=== PATIENT | female | born 1930 | race Caucasian/White ===

== ENCOUNTER 2017-03-27 17:56 | Inpatient (IN) ==
[2017-03-27] MEDS ORDERED: SODIUM CHLORIDE 0.9% 500 ML IV STA (18:06)
[2017-03-27] MEDS ORDERED: ACETAMINOPHEN 500 MG TABLET PO STA (18:22)
[2017-03-27] MEDS ORDERED: ACETAMINOPHEN 500 MG TABLET ONE (18:43)
[2017-03-27 18:51] LABS: Basophils % 0.3 % (0.0-0.8); Eosinophils # 0.2 10*3/uL (0.0-0.87); Eosinophils % 2.9 % (0.00-10.9); Hematocrit 31.7 VOL% (35.7-47.0); Hemoglobin 9.8 GM/DL (12.0-16.0); Immature Granulocytes % 0.7 %; Immature Granulocytes Absolute 0.05 #; Lymphocytes # 0.6 10*3/uL (1.4-4.0); Mean Corpuscular HGB Conc 30.9 GM/DL (32-36); Mean Corpuscular Hemoglobin 27 PG (27-34); Mean Corpuscular Volume 87.1 FL (87-102); Mean Platelet Volume 9.1 FL (9.6-12.0); Monocytes # 0.6 10*3/uL (0.11-0.8); Neutrophils # 5.9 10*3/uL (1.4-7.4); Neutrophils % 80.1 % (38.7-73.9); Platelet Count 185 T/CUMM (130-400); Red Blood Count 3.64 MC/CUMM (3.8-5.5); Red Cell Distribution Width 15.8 % (9.3-17.3); White Blood Count 7.3 T/CUMM (4-12)
[2017-03-27 19:06] LABS: Ammonia < 10 UMOL/L (11-32)
[2017-03-27 19:10] LABS: Lactic Acid 0.9 MMOL/L (0.4-2.0)
[2017-03-27 19:11] LABS: PT Patient Result 10.6 SECS
[2017-03-27 19:13] LABS: Alanine Aminotransferase 15 U/L (13-56); Albumin 3.2 G/DL (3.4-5.0); Alkaline Phosphatase 93 U/L (45-117); Aspartate Amino Transferase 12 U/L (0-37); Blood Urea Nitrogen 20 MG/DL (7-18); Calcium 8.7 MG/DL (8.5-10.1); Glucose 95 MG/DL (74-106); Osmolality,Calculated 275.8 MOS/KG (273-304); Potassium 4.3 MMOL/L (3.5-5.1); Sodium 137 MMOL/L (136-145); Troponin I Only < 0.015 NG/ML (0.00-0.045)
[2017-03-27 19:30] LABS: Apearance,Urine Slightly Hazy (Clear); Bacteria,Urine Few /HPF (Few); Bilirubin,Urine Negative (Negative); Blood, Urine Negative (Negative); Glucose,Urine (UA) Negative (Negative); Ketones,Urine Negative (Negative); Mucus,Urine Occasional /LPF (Occasional); Nitrite,Urine Positive (Negative); Protein,Urine 100 MG/DL; RBC,Urine 10 /HPF (0-4); Squamous Epithelial Cell,Urine Occasional /HPF (0-10); Urine Color Yellow (Yellow); Urine Specific Gravity 1.014 (1.001-1.035); Urine Urobilinogen < 2.0 EU/DL (0.2-1.0); WBC,Urine 81 /HPF (0-6)
[2017-03-27] MEDS ORDERED: cefTRIAXone 1,000 MG in SODIUM CHLORIDE 0.9% 100 ML IV STA (19:32)
[2017-03-27] MEDS ORDERED: cefTRIAXone 1,000 MG VIAL ONE (19:56)
[2017-03-27] MEDS ORDERED: ACETAMINOPHEN 325 MG TABLET PO PRN ×2 (21:26)
[2017-03-27] MEDS ORDERED: ENOXAPARIN 30 MG/0.3 ML SYRINGE SUBCUT SCH (21:26)
[2017-03-27 22:36] LABS: Troponin I Only < 0.015 NG/ML (0.00-0.045)
[2017-03-27] MEDS ORDERED: ENOXAPARIN 30 MG/0.3 ML SYRINGE ONE (23:24)
[2017-03-27] MEDS: SODIUM CHLORIDE 0.45% 1,000 ML IV SCH (23:55)
[2017-03-27] MEDS: VERAPAMIL SR 240 MG TABLET PO SCH (23:58)
[2017-03-28 04:28] LABS: Basophils % 0.3 % (0.0-0.8); Eosinophils # 0.2 10*3/uL (0.0-0.87); Eosinophils % 2.9 % (0.00-10.9); Hemoglobin 9.6 GM/DL (12.0-16.0); Immature Granulocytes % 0.6 %; Immature Granulocytes Absolute 0.04 #; Lymphocytes # 0.6 10*3/uL (1.4-4.0); Lymphocytes % 8.7 % (21.3-54.2); Mean Corpuscular Hemoglobin 27 PG (27-34); Mean Corpuscular Volume 85.5 FL (87-102); Mean Platelet Volume 9.2 FL (9.6-12.0); Monocytes # 0.7 10*3/uL (0.11-0.8); Monocytes % 10.4 % (1.7-12.7); Neutrophils # 5.1 10*3/uL (1.4-7.4); Neutrophils % 77.1 % (38.7-73.9); Platelet Count 167 T/CUMM (130-400); Red Blood Count 3.51 MC/CUMM (3.8-5.5); Red Cell Distribution Width 15.9 % (9.3-17.3); White Blood Count 6.7 T/CUMM (4-12)
[2017-03-28 05:02] LABS: Bilirubin,Total 0.6 MG/DL (0.2-1.0); Calcium 8.2 MG/DL (8.5-10.1); Total Protein 6.4 G/DL (6.4-8.3)
[2017-03-28 05:03] LABS: Osmolality,Calculated 278.5 MOS/KG (273-304); Potassium 3.9 MMOL/L (3.5-5.1); Risk Ratio 3.32; Troponin I Only 0.015 NG/ML (0.00-0.045); VLDL CHOLESTEROL 12.2 MG/DL
[2017-03-28] MEDS ORDERED: predniSONE 20 MG TABLET ONE (08:50)
[2017-03-28] MEDS ORDERED: ASPIRIN 325 MG TABLET ONE (08:51)
[2017-03-28] MEDS ORDERED: cefTRIAXone 1,000 MG VIAL ONE (08:51)
[2017-03-28] MEDS: ASPIRIN 325 MG TABLET PO SCH (08:55)
[2017-03-28] MEDS: predniSONE 20 MG TABLET PO SCH (08:55)
[2017-03-28] MEDS: cefTRIAXone 1,000 MG in SYRINGE 1 EACH IV SCH (08:59)
[2017-03-28] MEDS: MULTIVITAMIN (CENTRUM) TABLET PO SCH (10:30)
[2017-03-28] MEDS: SERTRALINE 50 MG TABLET PO SCH (10:30)
[2017-03-28] MEDS ORDERED: LORazepam 2 MG/1 ML VIAL ONE (13:04)
[2017-03-28] MEDS ORDERED: LORazepam 2 MG/1 ML VIAL IV STA (13:07)
[2017-03-28] MEDS ORDERED: clonazePAM 0.5 MG TABLET PO PRN (15:08)
[2017-03-28] MEDS ORDERED: diphenhydrAMINE CAP 25 MG CAPSULE PO PRN (15:08)
[2017-03-28] MEDS: SODIUM CHLORIDE 0.45% 1,000 ML IV SCH (17:33)
[2017-03-28] MEDS: DONEPEZIL 5 MG TABLET PO SCH (17:36)
[2017-03-28] MEDS ORDERED: ENOXAPARIN 40 MG/0.4 ML SYRINGE SUBCUT SCH (21:00)
[2017-03-28] MEDS: VERAPAMIL SR 240 MG TABLET PO SCH (21:07)
[2017-03-29] MEDS: SODIUM CHLORIDE 0.45% 1,000 ML IV SCH (07:02)
[2017-03-29] MEDS: MULTIVITAMIN (CENTRUM) TABLET PO SCH (08:50)
[2017-03-29] MEDS: SERTRALINE 50 MG TABLET PO SCH (08:50)
[2017-03-29] MEDS: DONEPEZIL 5 MG TABLET PO SCH (08:50)
[2017-03-29] MEDS: ASPIRIN 325 MG TABLET PO SCH (08:50)
[2017-03-29] MEDS: predniSONE 20 MG TABLET PO SCH (08:50)
[2017-03-29] MEDS: cefTRIAXone 1,000 MG in SYRINGE 1 EACH IV SCH (08:53)
[2017-03-29 11:17] VITALS: BP 163/70
== END 2017-03-29 11:30 | DRG 884 ==
LOC: EDBD → EDUNIT# → N.ED 17:56 → N.EDINP 20:20 → N.2E 03-28 13:42
PROVIDERS: ADMIT Internal Medicine Geriatric Medicine; ATTEND Internal Medicine Geriatric Medicine

== ENCOUNTER 2020-04-11 10:08 | Inpatient (IN) ==
[2020-04-11] MEDS ORDERED: SODIUM CHLORIDE 0.9% 1,000 ML IV STA (10:44)
[2020-04-11 11:00] LABS: Basophils % 0.3 % (0.0-0.8); Hematocrit 28.4 VOL% (35.7-47.0); Hemoglobin 8.6 GM/DL (12.0-16.0); Immature Granulocytes % 0.6 %; Immature Granulocytes Absolute 0.02 #; Lymphocytes # 0.5 10*3/uL (1.4-4.0); Lymphocytes % 14.8 % (21.3-54.2); Mean Corpuscular HGB Conc 30.3 GM/DL (32-36); Mean Corpuscular Volume 86.6 FL (87-102); Mean Platelet Volume 10.2 FL (9.6-12.0); Monocytes % 8.3 % (1.7-12.7); Platelet Count 169 T/CUMM (130-400); Red Blood Count 3.28 MC/CUMM (3.8-5.5); Red Cell Distribution Width 16.6 % (9.3-17.3); White Blood Count 3.5 T/CUMM (4-12)
[2020-04-11 11:11] LABS: Albumin 2.3 G/DL (3.4-5.0); Bilirubin,Total 0.4 MG/DL (0.2-1.0); Calcium 8.2 MG/DL (8.5-10.1); Osmolality,Calculated 280.4 MOS/KG (273-304); Thyroid Stimulating Hormone 2.38 uIU/ml (0.358-3.74)
[2020-04-11 11:18] LABS: Potassium 5.7 MMOL/L (3.5-5.1)
[2020-04-11 11:26] LABS: Ferritin 374.9 ng/ml (8-252)
[2020-04-11 11:33] LABS: Amorphous Crystals,Urine Few /HPF (Few); Bilirubin,Urine Negative (Negative); Blood, Urine Large mg/dL (Negative); Glucose,Urine (UA) Negative (Negative); Ketones,Urine Negative (Negative); Mucus,Urine Occasional /LPF (Occasional); Nitrite,Urine Positive (Negative); Protein,Urine 30 MG/DL; RBC,Urine 1 /HPF (0-4); Squamous Epithelial Cell,Urine Occasional /HPF (0-10); Urine Appearance CLOUDY (Clear); Urine Color Yellow (Yellow); Urine Specific Gravity 1.016 (1.001-1.035); Urine Urobilinogen < 2.0 EU/DL (0.2-1.0); WBC,Urine 5 /HPF (0-6)
[2020-04-11] MEDS ORDERED: cefTRIAXone 1,000 MG in SODIUM CHLORIDE 0.9% 100 ML IV STA (12:23)
[2020-04-11] MEDS ORDERED: cefTRIAXone 1,000 MG VIAL ONE (12:28)
[2020-04-11] MEDS ORDERED: ONDANSETRON 4 MG/2 ML VIAL IV PRN (13:16)
[2020-04-11] MEDS ORDERED: hydrALAZINE 20 MG/1 ML VIAL IV PRN (13:16)
[2020-04-11] MEDS ORDERED: GLUCAGON 1 MG VIAL IM PRN (13:16)
[2020-04-11] MEDS ORDERED: DEXTROSE 50% 25 GM/50 ML VIAL IV PRN (13:16)
[2020-04-11] MEDS ORDERED: DOCUSATE SODIUM 100 MG CAPSULE PO PRN (13:16)
[2020-04-11] MEDS: DEXTROSE 5% NACL 0.45% 1,000 ML IV SCH (15:35)
[2020-04-11] MEDS: ENOXAPARIN 40 MG/0.4 ML SYRINGE SUBCUT SCH (20:20)
[2020-04-12] MEDS: DEXTROSE 5% NACL 0.45% 1,000 ML IV SCH ×4 (00:15→21:42)
[2020-04-12 04:45] LABS: Basophils % 0.6 % (0.0-0.8); Eosinophils % 0.3 % (0.00-10.9); Hematocrit 26.5 VOL% (35.7-47.0); Immature Granulocytes % 0.3 %; Immature Granulocytes Absolute 0.01 #; Mean Corpuscular HGB Conc 30.2 GM/DL (32-36); Mean Corpuscular Volume 87.2 FL (87-102); Mean Platelet Volume 9.5 FL (9.6-12.0); Monocytes % 11.2 % (1.7-12.7); Neutrophils % 57.6 % (38.7-73.9); Platelet Count 117 T/CUMM (130-400); Red Blood Count 3.04 MC/CUMM (3.8-5.5); Red Cell Distribution Width 16.2 % (9.3-17.3); White Blood Count 3.4 T/CUMM (4-12)
[2020-04-12 05:05] LABS: Osmolality,Calculated 280.3 MOS/KG (273-304)
[2020-04-12 05:07] LABS: Hypochromasia 1+; Microcytosis 1+; Platelet Estimate Decreased
[2020-04-12] MEDS: cefTRIAXone 1,000 MG in SYRINGE 1 EACH IV SCH (09:05)
[2020-04-12] MEDS: GENTAMICIN 0.3% OPH SOLN 5 ML BOTTLE BOTH EYES SCH ×4 (10:39→23:40)
[2020-04-12] MEDS: ENOXAPARIN 40 MG/0.4 ML SYRINGE SUBCUT SCH (21:40)
[2020-04-13] MEDS: GENTAMICIN 0.3% OPH SOLN 5 ML BOTTLE BOTH EYES SCH ×3 (03:32→10:23)
[2020-04-13] MEDS: DEXTROSE 5% NACL 0.45% 1,000 ML IV SCH ×2 (05:08→09:16)
[2020-04-13 06:41] LABS: Basophils % 0.3 % (0.0-0.8); Eosinophils % 0.3 % (0.00-10.9); Hematocrit 29.4 VOL% (35.7-47.0); Hemoglobin 9.2 GM/DL (12.0-16.0); Immature Granulocytes % 0.3 %; Immature Granulocytes Absolute 0.01 #; Lymphocytes # 1.2 10*3/uL (1.4-4.0); Lymphocytes % 34.7 % (21.3-54.2); Mean Corpuscular HGB Conc 31.3 GM/DL (32-36); Mean Corpuscular Volume 84.2 FL (87-102); Mean Platelet Volume 9.4 FL (9.6-12.0); Monocytes % 12.5 % (1.7-12.7); Neutrophils % 51.9 % (38.7-73.9); Platelet Count 146 T/CUMM (130-400); Red Blood Count 3.49 MC/CUMM (3.8-5.5); Red Cell Distribution Width 15.9 % (9.3-17.3); White Blood Count 3.4 T/CUMM (4-12)
[2020-04-13 07:08] LABS: Calcium 8.2 MG/DL (8.5-10.1); Osmolality,Calculated 273.7 MOS/KG (273-304); Potassium 3.5 MMOL/L (3.5-5.1)
[2020-04-13] MEDS: cefTRIAXone 1,000 MG in SYRINGE 1 EACH IV SCH (08:38)
[2020-04-13 12:31] VITALS: BP 103/66
== END 2020-04-13 12:36 | DRG 682 ==
LOC: EDBD → EDUNIT# → N.ED 10:08 → N.5E 10:08 → OBSVTOIN 12:54 → N.5E 14:20
PROVIDERS: ADMIT Family Medicine; ATTEND Family Medicine

== ENCOUNTER 2020-05-09 22:01 | Inpatient (IN) ==
[2020-05-09] MEDS ORDERED: PIPERACILLIN/TAZOBACTAM 3,375 MG in SODIUM CHLORIDE 0.9% 100 ML IV STA (22:40)
[2020-05-09] MEDS ORDERED: SODIUM CHLORIDE 0.9% 500 ML IV STA (22:40)
[2020-05-09 22:46] LABS: Hematocrit 29.4 VOL% (35.7-47.0); Immature Granulocytes % 0.5 %; Immature Granulocytes Absolute 0.04 #; Lymphocytes # 0.5 10*3/uL (1.4-4.0); Lymphocytes % 6.8 % (21.3-54.2); Mean Corpuscular HGB Conc 30.6 GM/DL (32-36); Mean Corpuscular Volume 87.2 FL (87-102); Mean Platelet Volume 9.3 FL (9.6-12.0); Monocytes % 5.8 % (1.7-12.7); Neutrophils % 86.9 % (38.7-73.9); Platelet Count 168 T/CUMM (130-400); Red Blood Count 3.37 MC/CUMM (3.8-5.5); Red Cell Distribution Width 18.1 % (9.3-17.3)
[2020-05-09 22:52] LABS: PT Patient Result 10.6 SECS (9.8-11.9)
[2020-05-09 23:02] LABS: Alanine Aminotransferase 13 U/L (13-56); Albumin 2.8 G/DL (3.4-5.0); Alkaline Phosphatase 111 U/L (45-117); Aspartate Amino Transferase 14 U/L (0-37); Bilirubin,Total < 0.39 MG/DL (0.2-1.0); Blood Urea Nitrogen 25 MG/DL (7-18); Calcium 8.5 MG/DL (8.5-10.1); Carbon Dioxide 24 MMOL/L (21-32); Estimated Glom Filtration Rate 26 ML/MIN; Glucose 145 MG/DL (74-106); Osmolality,Calculated 289.1 MOS/KG (273-304); Sodium 142 MMOL/L (136-145); Total Protein 7.5 G/DL (5.0-7.5); Troponin I 0.056 NG/ML (0.00-0.045)
[2020-05-09 23:46] LABS: Bilirubin,Urine Negative (Negative); Blood, Urine Large mg/dL (Negative); Glucose,Urine (UA) Negative (Negative); Ketones,Urine Negative (Negative); Mucus,Urine Occasional /LPF (Occasional); Nitrite,Urine Negative (Negative); Protein,Urine 100 MG/DL; RBC,Urine 30 /HPF (0-4); Squamous Epithelial Cell,Urine Occasional /HPF (0-10); Urine Appearance CLEAR (Clear); Urine Color Yellow (Yellow); Urine Specific Gravity 1.015 (1.001-1.035); Urine Urobilinogen < 2.0 EU/DL (0.2-1.0); WBC,Urine 42 /HPF (0-6)
[2020-05-09 23:49] LABS: Barbiturates Screen,Urine Negative (Negative); Benzodiazepines Screen,Urine Negative (Negative); Cannabinoid Screen,Urine Negative (Negative); Opiate Screen,Urine Negative (Negative); Phencyclidine Screen,Urine Negative (Negative)
[2020-05-10] MEDS ORDERED: DOCUSATE SODIUM 100 MG CAPSULE PO PRN (01:38)
[2020-05-10] MEDS ORDERED: ACETAMINOPHEN 325 MG TABLET PO PRN (01:38)
[2020-05-10] MEDS ORDERED: ONDANSETRON 4 MG/2 ML VIAL IV PRN (01:38)
[2020-05-10] MEDS ORDERED: DEXTROSE 50% 25 GM/50 ML VIAL IV PRN (01:38)
[2020-05-10] MEDS ORDERED: GLUCAGON 1 MG VIAL IM PRN (01:38)
[2020-05-10] MEDS: SODIUM CHLORIDE 0.9% 1,000 ML IV SCH ×2 (02:30→13:58)
[2020-05-10 04:15] LABS: Basophils % 0.2 % (0.0-0.8); Hematocrit 27.5 VOL% (35.7-47.0); Hemoglobin 7.9 GM/DL (12.0-16.0); Immature Granulocytes % 0.5 %; Immature Granulocytes Absolute 0.05 #; Lymphocytes # 1.3 10*3/uL (1.4-4.0); Lymphocytes % 12.4 % (21.3-54.2); Mean Corpuscular HGB Conc 28.7 GM/DL (32-36); Mean Platelet Volume 8.9 FL (9.6-12.0); Monocytes % 8.4 % (1.7-12.7); Neutrophils % 78.5 % (38.7-73.9); Platelet Count 143 T/CUMM (130-400); Red Blood Count 2.99 MC/CUMM (3.8-5.5); Red Cell Distribution Width 18.2 % (9.3-17.3); White Blood Count 10.2 T/CUMM (4-12)
[2020-05-10 04:34] LABS: Anisocytosis 1+; Hypochromasia 1+; Microcytosis 1+; Ovalocytes Slight
[2020-05-10 04:35] LABS: Platelet Estimate Adequate
[2020-05-10 04:53] LABS: Calcium 8.4 MG/DL (8.5-10.1); Potassium 3.9 MMOL/L (3.5-5.1); Risk Ratio 3.31; VLDL CHOLESTEROL 13.2 MG/DL
[2020-05-10] MEDS: cefTRIAXone 1,000 MG in SYRINGE 1 EACH IV SCH (09:46)
[2020-05-10] MEDS: hydrALAZINE 20 MG/1 ML VIAL IV PRN (17:25)
[2020-05-11] MEDS: SODIUM CHLORIDE 0.9% 1,000 ML IV SCH ×3 (00:57→10:57)
[2020-05-11 05:14] LABS: Basophils % 0.2 % (0.0-0.8); Eosinophils % 0.1 % (0.00-10.9); Hematocrit 26.2 VOL% (35.7-47.0); Hemoglobin 7.8 GM/DL (12.0-16.0); Immature Granulocytes % 0.6 %; Immature Granulocytes Absolute 0.05 #; Lymphocytes # 1.1 10*3/uL (1.4-4.0); Lymphocytes % 12.2 % (21.3-54.2); Mean Corpuscular HGB Conc 29.8 GM/DL (32-36); Mean Platelet Volume 9.8 FL (9.6-12.0); Monocytes % 5.3 % (1.7-12.7); Neutrophils % 81.6 % (38.7-73.9); Platelet Count 135 T/CUMM (130-400); Red Blood Count 2.91 MC/CUMM (3.8-5.5); Red Cell Distribution Width 18.5 % (9.3-17.3); White Blood Count 9.1 T/CUMM (4-12)
[2020-05-11 05:38] LABS: Calcium 8.2 MG/DL (8.5-10.1); Osmolality,Calculated 282.3 MOS/KG (273-304); Potassium 3.8 MMOL/L (3.5-5.1)
[2020-05-11] MEDS: MEMANTINE 10 MG TABLET PO SCH ×2 (09:35→20:31)
[2020-05-11] MEDS: GABAPENTIN 300 MG CAPSULE PO SCH ×2 (09:35→20:39)
[2020-05-11] MEDS: LEVOTHYROXINE 50 MCG TABLET PO SCH (09:35)
[2020-05-11] MEDS: ENOXAPARIN 40 MG/0.4 ML SYRINGE SUBCUT SCH (09:35)
[2020-05-11] MEDS: LOSARTAN 50 MG TABLET PO SCH (09:35)
[2020-05-11] MEDS: DONEPEZIL 5 MG TABLET PO SCH (09:35)
[2020-05-11] MEDS: cefTRIAXone 1,000 MG in SYRINGE 1 EACH IV SCH (09:42)
[2020-05-11] MEDS ORDERED: METOPROLOL TARTRATE 5 MG/5 ML VIAL IV ONE ×2 (13:47→18:05)
[2020-05-11] MEDS: VERAPAMIL SR 240 MG TABLET PO SCH (20:31)
[2020-05-11] MEDS: SERTRALINE 50 MG TABLET PO SCH (20:39)
[2020-05-11] MEDS ORDERED: traZODone 50 MG TABLET PO SCH (21:00)
[2020-05-12] MEDS: SODIUM CHLORIDE 0.9% 1,000 ML IV SCH ×2 (02:05→17:15)
[2020-05-12] MEDS: LEVOTHYROXINE 50 MCG TABLET PO SCH (05:58)
[2020-05-12 06:52] LABS: Basophils % 0.4 % (0.0-0.8); Hematocrit 28.7 VOL% (35.7-47.0); Hemoglobin 8.7 GM/DL (12.0-16.0); Immature Granulocytes % 0.5 %; Immature Granulocytes Absolute 0.05 #; Lymphocytes # 0.8 10*3/uL (1.4-4.0); Lymphocytes % 8.3 % (21.3-54.2); Mean Corpuscular HGB Conc 30.3 GM/DL (32-36); Mean Corpuscular Volume 90.5 FL (87-102); Mean Platelet Volume 9.5 FL (9.6-12.0); Monocytes % 6.3 % (1.7-12.7); Neutrophils % 84.5 % (38.7-73.9); Platelet Count 198 T/CUMM (130-400); Red Blood Count 3.17 MC/CUMM (3.8-5.5)
[2020-05-12 07:17] LABS: Calcium 8.6 MG/DL (8.5-10.1); Osmolality,Calculated 289.8 MOS/KG (273-304); Potassium 3.7 MMOL/L (3.5-5.1)
[2020-05-12] MEDS: DONEPEZIL 5 MG TABLET PO SCH (09:42)
[2020-05-12] MEDS: GABAPENTIN 300 MG CAPSULE PO SCH ×2 (09:43→21:37)
[2020-05-12] MEDS: ENOXAPARIN 40 MG/0.4 ML SYRINGE SUBCUT SCH (09:43)
[2020-05-12] MEDS: MEMANTINE 10 MG TABLET PO SCH ×2 (09:43→21:39)
[2020-05-12] MEDS: LOSARTAN 50 MG TABLET PO SCH (09:43)
[2020-05-12] MEDS: cefTRIAXone 1,000 MG in SYRINGE 1 EACH IV SCH (10:13)
[2020-05-12] MEDS: hydrALAZINE 20 MG/1 ML VIAL IV PRN (14:52)
[2020-05-12] MEDS: VERAPAMIL SR 240 MG TABLET PO SCH (21:35)
[2020-05-12] MEDS: SERTRALINE 50 MG TABLET PO SCH (21:37)
[2020-05-13] MEDS: LEVOTHYROXINE 50 MCG TABLET PO SCH (06:02)
[2020-05-13] MEDS: cefTRIAXone 1,000 MG in SYRINGE 1 EACH IV SCH (08:49)
[2020-05-13] MEDS: LOSARTAN 50 MG TABLET PO SCH (09:27)
[2020-05-13] MEDS: MEMANTINE 10 MG TABLET PO SCH ×2 (09:27→21:58)
[2020-05-13] MEDS: DONEPEZIL 5 MG TABLET PO SCH (09:27)
[2020-05-13] MEDS: GABAPENTIN 300 MG CAPSULE PO SCH ×2 (09:28→21:58)
[2020-05-13] MEDS: ENOXAPARIN 40 MG/0.4 ML SYRINGE SUBCUT SCH (09:29)
[2020-05-13] MEDS: SODIUM CHLORIDE 0.9% 1,000 ML IV SCH (09:29)
[2020-05-13] MEDS: SERTRALINE 50 MG TABLET PO SCH (21:58)
[2020-05-13] MEDS: VERAPAMIL SR 240 MG TABLET PO SCH (21:58)
[2020-05-14] MEDS: LEVOTHYROXINE 50 MCG TABLET PO SCH (06:19)
[2020-05-14] MEDS: GABAPENTIN 300 MG CAPSULE PO SCH ×2 (08:52→21:05)
[2020-05-14] MEDS: LOSARTAN 50 MG TABLET PO SCH (08:52)
[2020-05-14] MEDS: MEMANTINE 10 MG TABLET PO SCH ×2 (08:52→21:05)
[2020-05-14] MEDS: DONEPEZIL 5 MG TABLET PO SCH (08:52)
[2020-05-14] MEDS: ENOXAPARIN 40 MG/0.4 ML SYRINGE SUBCUT SCH (08:53)
[2020-05-14] MEDS ORDERED: SODIUM CHLORIDE 0.9% 1,000 ML IV SCH (09:00)
[2020-05-14] MEDS: cefTRIAXone 1,000 MG in SYRINGE 1 EACH IV SCH (09:07)
[2020-05-14] MEDS: SODIUM CHLORIDE 0.9% 1,000 ML IV SCH ×2 (09:17→09:18)
[2020-05-14 09:21] LABS: Basophils % 0.6 % (0.0-0.8); Eosinophils % 0.2 % (0.00-10.9); Hematocrit 27.4 VOL% (35.7-47.0); Hemoglobin 8.5 GM/DL (12.0-16.0); Immature Granulocytes % 0.6 %; Immature Granulocytes Absolute 0.03 #; Lymphocytes # 1.1 10*3/uL (1.4-4.0); Lymphocytes % 22.1 % (21.3-54.2); Mean Corpuscular Volume 87.5 FL (87-102); Mean Platelet Volume 8.8 FL (9.6-12.0); Monocytes % 10.2 % (1.7-12.7); Neutrophils % 66.3 % (38.7-73.9); Platelet Count 162 T/CUMM (130-400); Red Blood Count 3.13 MC/CUMM (3.8-5.5); Red Cell Distribution Width 18.2 % (9.3-17.3)
[2020-05-14 09:40] LABS: Albumin 2.4 G/DL (3.4-5.0); Bilirubin,Total 0.4 MG/DL (0.2-1.0); Calcium 8.2 MG/DL (8.5-10.1); Osmolality,Calculated 285.8 MOS/KG (273-304); Potassium 2.9 MMOL/L (3.5-5.1); Total Protein 6.7 G/DL (5.0-7.5)
[2020-05-14 09:49] LABS: % Iron Saturation 10.7 % (18-50)
[2020-05-14 11:15] LABS: Folate 10.4 NG/ML (5.38-24.0)
[2020-05-14] MEDS: ASPIRIN EC 325 MG TABLET PO SCH (11:42)
[2020-05-14] MEDS: POTASSIUM CHLORIDE 20 MEQ TABLET PO SCH ×2 (14:26→16:26)
[2020-05-14] MEDS: carvediloL 6.25 MG TABLET PO SCH (16:25)
[2020-05-14] MEDS: SERTRALINE 50 MG TABLET PO SCH (21:05)
[2020-05-14] MEDS: FERROUS SULFATE 325 MG TABLET PO SCH (21:05)
[2020-05-14] MEDS: VERAPAMIL SR 240 MG TABLET PO SCH (21:05)
[2020-05-15 06:34] LABS: Basophils % 0.4 % (0.0-0.8); Eosinophils % 0.4 % (0.00-10.9); Hematocrit 26.5 VOL% (35.7-47.0); Immature Granulocytes % 0.9 %; Immature Granulocytes Absolute 0.04 #; Lymphocytes # 1.3 10*3/uL (1.4-4.0); Mean Corpuscular HGB Conc 30.2 GM/DL (32-36); Mean Corpuscular Volume 88.9 FL (87-102); Mean Platelet Volume 9.6 FL (9.6-12.0); Monocytes % 8.5 % (1.7-12.7); Neutrophils % 61.8 % (38.7-73.9); Platelet Count 169 T/CUMM (130-400); Red Blood Count 2.98 MC/CUMM (3.8-5.5); Red Cell Distribution Width 18.2 % (9.3-17.3); White Blood Count 4.5 T/CUMM (4-12)
[2020-05-15] MEDS: LEVOTHYROXINE 50 MCG TABLET PO SCH (06:43)
[2020-05-15 06:52] LABS: Calcium 8.6 MG/DL (8.5-10.1); Osmolality,Calculated 292.4 MOS/KG (273-304); Potassium 3.8 MMOL/L (3.5-5.1)
[2020-05-15 06:53] LABS: Hypochromasia 1+; Microcytosis 1+; Platelet Estimate Adequate
[2020-05-15] MEDS ORDERED: LOSARTAN 50 MG TABLET PO SCH (08:16)
[2020-05-15] MEDS: cefTRIAXone 1,000 MG in SYRINGE 1 EACH IV SCH (08:21)
[2020-05-15] MEDS: ENOXAPARIN 40 MG/0.4 ML SYRINGE SUBCUT SCH (08:21)
[2020-05-15] MEDS: DONEPEZIL 5 MG TABLET PO SCH (08:22)
[2020-05-15] MEDS: GABAPENTIN 300 MG CAPSULE PO SCH (08:22)
[2020-05-15] MEDS: MEMANTINE 10 MG TABLET PO SCH (08:22)
[2020-05-15] MEDS: carvediloL 6.25 MG TABLET PO SCH (08:22)
[2020-05-15] MEDS: FERROUS SULFATE 325 MG TABLET PO SCH (08:22)
[2020-05-15] MEDS: ASPIRIN EC 325 MG TABLET PO SCH (08:22)
[2020-05-15 12:08] VITALS: BP 158/87
== END 2020-05-15 14:50 | DRG 689 ==
LOC: EDBD → EDUNIT# → N.EDINP 22:01 → N.ED 22:01 → N.TELES 05-10 13:50
PROVIDERS: ADMIT Internal Medicine; ATTEND Internal Medicine